=== PATIENT | female | born 1975 | race Caucasian/White ===

== ENCOUNTER 2021-02-27 20:49 | Observation (INO) ==
[2021-02-27] MEDS ORDERED: AMPICILLIN/SULBACTAM 3,000 MG in SODIUM CHLORIDE 0.9% 100 ML IV STA (23:47)
[2021-02-27] MEDS ORDERED: LIDOCAINE 1% 20 ML VIAL INFILTRAT STA (23:56)
[2021-02-27] MEDS ORDERED: DIPHTHERIA/TETANUS ADULT VACCINE 0.5 ML SYRINGE IM ONE (23:56)
[2021-02-27] MEDS ORDERED: MORPHINE 4 MG/1 ML VIAL IV PRN (23:57)
[2021-02-27] MEDS ORDERED: ONDANSETRON 4 MG/2 ML VIAL IV PRN (23:57)
[2021-02-28] MEDS ORDERED: ONDANSETRON 4 MG/2 ML VIAL IV ONE (00:35)
[2021-02-28] MEDS ORDERED: MORPHINE 4 MG/1 ML VIAL IV STA (00:35)
[2021-02-28 00:47] LABS: Basophils # 0.1 10*3/uL (0.0-0.2); Basophils % 0.9 % (0.0-0.8); Eosinophils # 0.2 10*3/uL (0.0-0.87); Eosinophils % 1.6 % (0.00-10.9); Hematocrit 38.7 VOL% (35.7-47.0); Hemoglobin 13.1 GM/DL (12.0-16.0); Immature Granulocytes % 0.4 %; Immature Granulocytes Absolute 0.05 #; Lymphocytes % 17.5 % (21.3-54.2); Mean Corpuscular HGB Conc 33.9 GM/DL (32-36); Mean Platelet Volume 8.3 FL (9.6-12.0); Monocytes % 7.2 % (1.7-12.7); Neutrophils % 72.4 % (38.7-73.9); Platelet Count 317 T/CUMM (130-400); Red Blood Count 3.87 MC/CUMM (3.8-5.5); Red Cell Distribution Width 12.1 % (9.3-17.3); White Blood Count 11.7 T/CUMM (4-12)
[2021-02-28 01:10] LABS: Albumin 3.7 G/DL (3.4-5.0); Bilirubin,Total 0.4 MG/DL (0.2-1.0); Calcium 8.1 MG/DL (8.5-10.1); Osmolality,Calculated 275.5 MOS/KG (273-304); Potassium 3.5 MMOL/L (3.5-5.1); Total Protein 7.5 G/DL (6.4-8.2)
[2021-02-28 01:19] LABS: INR 0.9; PT Patient Result 10.6 SECS (10.5-12.0); Partial Thromboplastin Time 27.5 SECS (23.9-33.8)
[2021-02-28] MEDS: DEXTROSE 5% NACL 0.45% 1,000 ML IV SCH ×4 (03:14→23:41)
[2021-02-28] MEDS ORDERED: AMPICILLIN/SULBACTAM 3,000 MG VIAL IV SCH (06:30)
[2021-02-28] MEDS ORDERED: AMPICILLIN/SULBACTAM 3,000 MG VIAL IM SCH (06:30)
[2021-02-28] MEDS ORDERED: MIDAZOLAM 2 MG/2 ML VIAL ONE (07:23)
[2021-02-28] MEDS ORDERED: LIDOCAINE 2% 5 ML VIAL ONE (07:23)
[2021-02-28] MEDS ORDERED: propofoL 200 MG/20 ML VIAL IV ONE ×2 (07:23→08:48)
[2021-02-28] MEDS ORDERED: fentaNYL 100 MCG/2 ML VIAL ONE ×2 (07:23→09:00)
[2021-02-28] MEDS ORDERED: SEVOFLURANE 1 UNIT/15 MINUTE INH ONE ×3 (07:57→08:59)
[2021-02-28] MEDS ORDERED: DEXAMETHASONE 4 MG/1 ML VIAL ONE (08:48)
[2021-02-28] MEDS ORDERED: ONDANSETRON 4 MG/2 ML VIAL ONE (08:48)
[2021-02-28] MEDS ORDERED: SODIUM CHLORIDE 0.9% 1,000 ML IV ONE (09:06)
[2021-02-28] MEDS ORDERED: MEPERIDINE 25 MG/1 ML VIAL IV PRN (09:40)
[2021-02-28] MEDS ORDERED: MEPERIDINE 25 MG/1 ML VIAL ONE (09:40)
[2021-02-28] MEDS ORDERED: ONDANSETRON 4 MG/2 ML VIAL IV PRN (09:40)
[2021-02-28] MEDS: PANTOPRAZOLE 40 MG VIAL IV SCH (09:57)
[2021-02-28] MEDS: AMPICILLIN/SULBACTAM 3,000 MG in SODIUM CHLORIDE 0.9% 100 ML IV SCH ×3 (10:17→21:45)
[2021-03-01] MEDS: AMPICILLIN/SULBACTAM 3,000 MG in SODIUM CHLORIDE 0.9% 100 ML IV SCH ×2 (03:51→09:20)
[2021-03-01] MEDS: DEXTROSE 5% NACL 0.45% 1,000 ML IV SCH (05:17)
[2021-03-01] MEDS ORDERED: AMPICILLIN/SULBACTAM 1,500 MG in SODIUM CHLORIDE 0.9% 100 ML IV SCH (08:00)
[2021-03-01 08:13] VITALS: BP 121/72
[2021-03-01] MEDS: PANTOPRAZOLE 40 MG VIAL IV SCH (09:20)
== END 2021-03-01 10:45 | disposition home or self-care (01) ==
LOC: N.EDINP 20:49 → N.ED 20:49 → N.3E 02-28 02:00
PROVIDERS: ADMIT Surgery; ATTEND Surgery